=== PATIENT | male | born 1995 | race Caucasian/White ===

== ENCOUNTER 2019-06-22 09:48 | Emergency (ER) | payer OTHER ==
[~2019-06-22] VITALS: Ht 177.8 cm; Wt 77.1 kg
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
[2019-06-22] MEDS ORDERED: SULF-222 PO (11:57)
[2019-06-22 12:00] VITALS: BP 130/80
== END 2019-06-22 12:00 | disposition home or self-care (01) ==
LOC: ER FS 09:51
DX: R22.0 Localized swelling, mass and lump, head (principal)
CPT/HCPCS: 70450

== ENCOUNTER → 2022-07-16 | Outpatient (CLI) | payer SELFPAY ==
[~2022-07-16] MED LIST: SULF-222 PO
--- NOTE | 2022-07-16 11:26 | Diagnostic Imaging Report ---
INDICATION: Follow-up fracture. COMPARISON: None FINDINGS: Multiple radiographic views of the right hand were obtained. There are acute appearing transverse oriented fractures of the distal 4th and 5th metacarpals. There is mild angulation at the fracture sites. There is no evidence of intra-articular extension. Joint spaces are maintained. No unexpected radiopaque foreign bodies are seen. IMPRESSION: 1. Fractures of the 4th and 5th metacarpals as above. Dictated by: Dictated on workstation # [id number]
== END ==
LOC: RAD FS 09:18
PROVIDERS: ATTEND Nurse Practitioner
DX: S62.334D Displaced fracture of neck of fourth metacarpal bone, right hand, subsequent encounter for fracture with routine healing (principal); S62.336D Displaced fracture of neck of fifth metacarpal bone, right hand, subsequent encounter for fracture with routine healing; X58.XXXD Exposure to other specified factors, subsequent encounter
CPT/HCPCS: 73130

== ENCOUNTER 2022-12-27 04:38 | Emergency (ER) | payer SELFPAY ==
[2022-12-27] MEDS ORDERED: ONDANSETRON 4 MG/2 ML (SDV) Z0FRAN IVP STA (04:52)
[2022-12-27] MEDS ORDERED: NS IV 1000 ML 1,000 ML IV STA ×2 (04:52→05:49)
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
[2022-12-27 05:05] LABS: BASOPHILS % (AUTO) 1 % (0-10); EOSINOPHILS % (AUTO) 1 % (0-10); HEMATOCRIT 42 % (40-54); HEMOGLOBIN 14.3 g/dL (13.3-17.7); LYMPHOCYTES # (AUTO) 1.5 10^3/uL (1.0-4.0); LYMPHOCYTES % (AUTO) 24 % (12-44); MEAN CORPUSCULAR HEMOGLOBIN 30 pg (25-34); MEAN CORPUSCULAR HGB CONC 34 g/dL (32-36); MEAN CORPUSCULAR VOLUME 86 fL (80-99); MEAN PLATELET VOLUME 10.6 fL (9.0-12.2); MONOCYTES # (AUTO) 0.5 10^3/uL (0.0-1.0); MONOCYTES % (AUTO) 8 % (0-12); NEUTROPHILS # (AUTO) 4.3 10^3/uL (1.8-7.8); NEUTROPHILS % (AUTO) 67 % (42-75); PLATELET COUNT 230 10^3/uL (130-400); WHITE BLOOD COUNT 6.4 10^3/uL (4.3-11.0)
[2022-12-27] MEDS ORDERED: D5 LR IV SOLUTION 1,000 ML IV STA (05:14)
[2022-12-27 05:21] LABS: ACETAMINOPHEN < 10 UG/ML (10-30); ALANINE AMINOTRANSFERASE 24 U/L (0-55); ALBUMIN 4.5 GM/DL (3.2-4.5); ALKALINE PHOSPHATASE 77 U/L (40-136); BILIRUBIN,TOTAL 0.3 MG/DL (0.1-1.0); BUN/CREATININE RATIO 9; CALCIUM 8.6 MG/DL (8.5-10.1); CARBON DIOXIDE 25 MMOL/L (21-32); CHLORIDE 107 MMOL/L (98-107); CREATININE SERUM 0.98 MG/DL (0.60-1.30); GFR ESTIMATED 108; GLUCOSE 140 MG/DL (70-105); POTASSIUM 3.1 MMOL/L (3.6-5.0); SALICYLATE < 0.3 MG/DL (5.0-20.0); SODIUM 145 MMOL/L (135-145); TOTAL PROTEIN 6.6 GM/DL (6.4-8.2)
[2022-12-27] MEDS ORDERED: DEXTROSE 50% 50 ML (IMS) SYR IV STA (05:49)
[2022-12-27 07:15] LABS: BILIRUBIN,URINE NEGATIVE (NEGATIVE); CLARITY,URINE CLEAR; COLOR,URINE YELLOW; GLUCOSE, URINE (UA) 2+ (NEGATIVE); KETONES,URINE NEGATIVE (NEGATIVE); LEUKOCYTE ESTERASE ,URINE NEGATIVE (NEGATIVE); NITRITE,URINE NEGATIVE (NEGATIVE); PROTEIN,URINE NEGATIVE (NEGATIVE)
[2022-12-27 07:20] LABS: BACTERIA,URINE NEGATIVE /HPF; CALCIUM OXALATE CRYSTALS,UR FEW /LPF; WBC,URINE 0-2 /HPF
[2022-12-27 07:26] LABS: AMPHETAMINE SCREEN, URINE NEGATIVE (NEGATIVE); BARBITURATE SCREEN URINE NEGATIVE (NEGATIVE); BENZODIAZEPINES SCREEN URINE NEGATIVE (NEGATIVE); CANNABINOID SCREEN, URINE NEGATIVE (NEGATIVE); COCAINE SCREEN URINE NEGATIVE (NEGATIVE); METHADONE STAT NEGATIVE (NEGATIVE); OPIATE SCREEN URINE NEGATIVE (NEGATIVE); OXYCODONE STAT NEGATIVE (NEGATIVE); PROPOXYPHENE STAT NEGATIVE (NEGATIVE); TRICYCLIC ANTIDEPRESSANTS SCRE NEGATIVE (NEGATIVE)
[2022-12-27 08:03] VITALS: BP 108/64
== END 2022-12-27 08:03 | disposition home or self-care (01) ==
LOC: EDUNIT# 04:38 → ER FS 04:44
DX: E10.649 Type 1 diabetes mellitus with hypoglycemia without coma (principal); F10.229 Alcohol dependence with intoxication, unspecified; E87.6 Hypokalemia; R03.1 Nonspecific low blood-pressure reading; Y90.6 Blood alcohol level of 120-199 mg/100 ml; Z28.310 Unvaccinated for COVID-19
CPT/HCPCS: 36415; 80053; 80306; 81000; 82947; 85025; 93041; 99284; G0480 ×3; 80320; 80329

== ENCOUNTER 2023-07-21 13:13 | Emergency (ER) | payer SELFPAY ==
[~2023-07-21] VITALS: Ht 177 cm; Wt 170.0 kg
[2023-07-21] MEDS ORDERED: NS IV 1000 ML 1,000 ML IV STA ×2 (13:17→14:02)
[2023-07-21] MEDS ORDERED: ONDANSETRON INJECTION 4 MG/2 ML (SDV) IVP STA (13:17)
[2023-07-21] MEDS ORDERED: inSUlin (REGULAR) HUMAN 1 UNIT/0.01 ML (CHARGE PER UNIT) IV STA (13:29)
[2023-07-21 13:32] LABS: BASOPHILS # (AUTO) 0.1 10^3/uL (0.0-0.1); BASOPHILS % (AUTO) 0 % (0-10); EOSINOPHILS % (AUTO) 0 % (0-10); HEMATOCRIT 48 % (40-54); HEMOGLOBIN 16.3 g/dL (13.3-17.7); LYMPHOCYTES # (AUTO) 0.5 10^3/uL (1.0-4.0); LYMPHOCYTES % (AUTO) 2 % (12-44); MEAN CORPUSCULAR HEMOGLOBIN 30 pg (25-34); MEAN CORPUSCULAR HGB CONC 34 g/dL (32-36); MEAN CORPUSCULAR VOLUME 88 fL (80-99); MONOCYTES # (AUTO) 1.3 10^3/uL (0.0-1.0); MONOCYTES % (AUTO) 6 % (0-12); NEUTROPHILS # (AUTO) 22.3 10^3/uL (1.8-7.8); NEUTROPHILS % (AUTO) 92 % (42-75); PLATELET COUNT 283 10^3/uL (130-400); WHITE BLOOD COUNT 24.2 10^3/uL (4.3-11.0)
[2023-07-21 14:00] LABS: BAND NEUTROPHILS 28 %; LYMPHOCYTES % (MANUAL) 2 %; MONOCYTES % (MANUAL) 7 %; NEUTROPHILS % (MANUAL) 63 %; PLATELET ESTIMATE ADEQUATE; RBC MORPH NORMAL
[2023-07-21 14:01] LABS: BUN/CREATININE RATIO 24; CALCIUM 9.7 MG/DL (8.5-10.1); CHLORIDE 94 MMOL/L (98-107); CREATININE SERUM 1.17 MG/DL (0.60-1.30); GFR ESTIMATED 87; POTASSIUM 4.5 MMOL/L (3.6-5.0); SODIUM 133 MMOL/L (135-145)
[2023-07-21 14:02] LABS: ALANINE AMINOTRANSFERASE 49 U/L (0-55); ALBUMIN 5.1 GM/DL (3.2-4.5); ALKALINE PHOSPHATASE 108 U/L (40-136); BILIRUBIN,TOTAL 1.2 MG/DL (0.1-1.0); CARBON DIOXIDE 13 MMOL/L (21-32); LIPASE 10 U/L (8-78); TOTAL PROTEIN 7.6 GM/DL (6.4-8.2)
[2023-07-21 14:03] LABS: GLUCOSE 479 MG/DL (70-105)
--- NOTE | 2023-07-21 14:18 | ED General ---
General Chief Complaint: Abdominal/GI Problems Stated Complaint: VOMITING; DIARRHEA Nursing Triage Note: Patient has presented to ER with cc of vomiting and diarrhea since 0400 this morning. Source of Information: Patient, Family History of Present Illness Date Seen by Provider: Jul 21, 2023 Time Seen by Provider: 13:17 Initial Comments 28-year-old male presenting with family to the emergency department due to complaints of having nausea, vomiting, diarrhea since 4 AM. There have been family members with similar GI symptoms that have lasted 24 hours or less. Patient is diabetic and has not been able to keep anything down. He does have an insulin pump however it appears to be empty as the last change the cartridge several days ago. He had a blood sugar of 439 by our Accu-Chek on arrival. He has subjectively felt hot at times and chilled at times. He denies any pain or burning with urination. He has not been able to keep anything down with his GI symptoms today. Since this have been going on since 4 AM they finally brought him to the emergency department. They report that in general his sugars usually run between [id number]. Timing/Duration: 12 Hours Severity: Severe Modifying Factors: worse with Eating Associated Systoms: No Chest Pain, No Cough, No Diaphoresis; Fever/Chills (Subjective); No Headaches; Loss of Appetite, Malaise, Nausea/Vomiting; No Rash, No Seizure, No Shortness of Air, No Syncope; Weakness Allergies and Home Medications Allergies Coded Allergies: No Known Drug Allergies (Unverified , 06/22/19) Patient Home Medication List Home Medication List Reviewed: Yes Sulfamethoxazole/Trimethoprim (Sulfamethoxazole-Tmp Ds Tablet) 1 Each Tablet, 1 EACH PO BID Prescribed by: CATERINA RHODES on 06/22/19 1717 Review of Systems Review of Systems Constitutional: see HPI EENTM: no symptoms reported Respiratory: no symptoms reported Cardiovascular: palpitations Gastrointestinal: diarrhea, nausea, vomiting Genitourinary: No dysuria Musculoskeletal: no symptoms reported Skin: No rash Psychiatric/Neurological: No Symptoms Reported Past Yllxjyg-Kgyoyw-Vcrtac Hx Patient Social History Tobacco Use?: No Use of E-Cig and/or Vaping dev: Yes Use of E-Cig and/or Vaping Anthony: Current Everyday User Substance use?: No Alcohol Use?: No Immunizations Up To Date Tetanus Booster (TDap): Less than 5yrs Seasonal Allergies Seasonal Allergies: No Past Medical History Surgery/Hospitalization HX: Insulin Dependent Diabetes, Binge Alcohol use Surgeries: Yes Gallbladder Respiratory: No Cardiac: No Neurological: No Genitourinary: No Gastrointestinal: No Musculoskeletal: No Endocrine: Yes (DM Type I, DKA admit hx, acquired hypothyroidism) Diabetes, Insulin dep HEENT: No Cancer: No Psychosocial: No Depression Integumentary: Yes (areas of sores x 4 now scabbing on scalp) Recent Skin Changes Blood Disorders: No Physical Exam Vital Signs Vital Signs - First Documented 07/21/23 13:53 Pulse 121 Resp 18 B/P (MAP) 135/75 (95) Pulse Ox 97 O2 Delivery Room Air Capillary Refill : Height, Weight, BMI Height: 5'10.00" Weight: 170lbs. oz. [id number]; 54.00 BMI Method:Stated General Appearance: Mild Distress (Appears not to feel well. Is mostly keeping his eyes closed when trying to answer questions and family tries to answer for him.) HEENT: PERRL/EOMI; No Moist Mucous Membranes (Dry mucous membranes) Neck: Full Range of Motion, Normal Inspection, Non Tender, Supple Respiratory: Chest Non Tender, Lungs Clear, Normal Breath Sounds, No Accessory Muscle Use, No Respiratory Distress Cardiovascular: Normal Peripheral Pulses, Tachycardia Gastrointestinal: Normal Bowel Sounds, No Pulsatile Mass, Soft; No Distended, No Guarding; Tenderness (Mild diffuse tenderness) Rectal: Deferred Extremity: Normal Capillary Refill, No Pedal Edema Neurologic/Psychiatric: Alert, Oriented x3 Skin: Normal Color, Warm/Dry Focused Exam Lactate Level 07/21/23 13:20: Lactic Acid Level 4.33*H 07/21/23 15:34: Lactic Acid Level Laboratory Tests Test 07/21/23 13:20 07/21/23 15:34 Lactic Acid Level 4.33 MMOL/L (0.50-2.00) *H Progress/Results/Core Measures Suspected Sepsis SIRS Temperature: Pulse: 121 Respiratory Rate: 18 Laboratory Tests 07/21/23 13:20: White Blood Count 24.2H Blood Pressure 135 /75 Mean: 95 07/21/23 13:20: Lactic Acid Level 4.33*H 07/21/23 15:34: Laboratory Tests 07/21/23 13:20: Creatinine 1.17, Platelet Count 283, Total Bilirubin 1.2H 07/21/23 14:57: Creatinine 0.99 Results/Orders Lab Results Laboratory Tests Test 07/21/23 13:20 07/21/23 13:24 07/21/23 13:35 07/21/23 14:46 Range/Units White Blood Count 24.2 H 4.3-11.0 10^3/uL Red Blood Count 5.42 4.30-5.52 10^6/uL Hemoglobin 16.3 13.3-17.7 g/dL Hematocrit 48 40-54 % Mean Corpuscular Volume 88 80-99 fL Mean Corpuscular Hemoglobin 30 25-34 pg Mean Corpuscular Hemoglobin Concent 34 32-36 g/dL Red Cell Distribution Width 12.6 10.0-14.5 % Platelet Count 283 130-400 10^3/uL Mean Platelet Volume 11.0 9.0-12.2 fL Immature Granulocyte % (Auto) 1 % Neutrophils (%) (Auto) 92 H 42-75 % Lymphocytes (%) (Auto) 2 L 12-44 % Monocytes (%) (Auto) 6 0-12 % Eosinophils (%) (Auto) 0 0-10 % Basophils (%) (Auto) 0 0-10 % Neutrophils # (Auto) 22.3 H 1.8-7.8 10^3/uL Lymphocytes # (Auto) 0.5 L 1.0-4.0 10^3/uL Monocytes # (Auto) 1.3 H 0.0-1.0 10^3/uL Eosinophils # (Auto) 0.0 0.0-0.3 10^3/uL Basophils # (Auto) 0.1 0.0-0.1 10^3/uL Immature Granulocyte # (Auto) 0.1 0.0-0.1 10^3/uL Neutrophils % (Manual) 63 % Lymphocytes % (Manual) 2 % Monocytes % (Manual) 7 % Band Neutrophils 28 % Platelet Estimate ADEQUATE Blood Morphology Comment NORMAL Sodium Level 133 L 135-145 MMOL/L Potassium Level 4.5 3.6-5.0 MMOL/L Chloride Level 94 L 98-107 MMOL/L Carbon Dioxide Level 13 L 21-32 MMOL/L Anion Gap 26 H 5-14 MMOL/L Blood Urea Nitrogen 28 H 7-18 MG/DL Creatinine 1.17 0.60-1.30 MG/DL Estimat Glomerular Filtration Rate 87 BUN/Creatinine Ratio 24 Glucose Level 479 *H 70-105 MG/DL Lactic Acid Level 4.33 *H 0.50-2.00 MMOL/L Calcium Level 9.7 8.5-10.1 MG/DL Corrected Calcium 8.5-10.1 MG/DL Total Bilirubin 1.2 H 0.1-1.0 MG/DL Aspartate Amino Transf (AST/SGOT) 33 5-34 U/L Alanine Aminotransferase (ALT/SGPT) 49 0-55 U/L Alkaline Phosphatase 108 40-136 U/L Total Protein 7.6 6.4-8.2 GM/DL Albumin 5.1 H 3.2-4.5 GM/DL Lipase 10 8-78 U/L Beta-Hydroxybutyrate (Chem panel) 6.09 H 0.00-0.27 MMOL/L Serum Alcohol < 10 <10 MG/DL SARS-CoV-2 RNA (RT-PCR) Not Detected Not Detecte Glucometer 431 *H 269 H 70-110 MG/DL Venous Blood pH 7.23 L 7.31-7.41 Venous Blood Partial Pressure CO2 34 L 40-52 MMHG Venous Blood HCO3 58 H 22-28 MMOL/L Test 07/21/23 14:57 07/21/23 15:34 07/21/23 15:51 Range/Units Sodium Level 137 135-145 MMOL/L Potassium Level 4.2 3.6-5.0 MMOL/L Chloride Level 104 98-107 MMOL/L Carbon Dioxide Level 10 L 21-32 MMOL/L Anion Gap 23 H 5-14 MMOL/L Blood Urea Nitrogen 27 H 7-18 MG/DL Creatinine 0.99 0.60-1.30 MG/DL Estimat Glomerular Filtration Rate 106 BUN/Creatinine Ratio 27 Glucose Level 310 H 70-105 MG/DL Calcium Level 9.0 8.5-10.1 MG/DL Glucometer 204 H 70-110 MG/DL My Orders Orders - CATERINA RHODES MD Comprehensive Metabolic Panel (07/21/23 13:17) Lipase (07/21/23 13:17) Ua Culture If Indicated (07/21/23 13:17) Ed Iv/Invasive Line Start (07/21/23 13:17) Cbc And Automated Diff (07/21/23 13:17) Alcohol (07/21/23 13:17) Drug Screen Stat (Urine) (07/21/23 13:17) Beta Hydroxybutyrate (07/21/23 13:17) Covid 19 Inhouse Test (07/21/23 13:17) Ns Iv 1000 Ml (Ns Iv 1000 Ml) (07/21/23 13:17) Ondansetron Injection (Ondansetron Inj (07/21/23 13:17) Insulin (Regular) Per Unit (Insulin (Reg (07/21/23 13:29) Lactic Acid Analyzer (07/21/23 13:30) Venous Blood Gas (07/21/23 13:35) Manual Differential (07/21/23 13:20) Ns Iv 1000 Ml (Ns Iv 1000 Ml) (07/21/23 14:02) Metoclopramide Injection (Metoclopramide (07/21/23 14:31) Diphenhydramine Injection (Diphenhydram (07/21/23 14:31) Accucheck Stat ONCE (07/21/23 14:31) Iv/Invasive Line Insertion .IV INSERT (07/21/23 14:31) Basic Metabolic Panel (07/21/23 14:31) Basic Metabolic Panel (07/21/23 16:31) Hemoglobin A1c (07/21/23 14:31) Nothing By Mouth (07/21/23 Lunch) Vital Signs: Special (Order) Q2HX8 (07/21/23 14:31) Neurological Checks Q1HX8 (07/21/23 14:31) Ns Iv 1000 Ml (Ns Iv 1000 Ml) (07/21/23 14:45) 1/2 Ns Iv Solution 1000 Ml (1/2 Ns Iv So (07/21/23 14:45) D5 1/2 Ns 1,000 Ml Iv (Dextrose 5%/0.45% (07/21/23 14:45) Insulin Regular Drip (Insulin Regular Dr (07/21/23 14:45) Nursing Communication (Order) (07/21/23 14:31) Notify Physician (07/21/23 14:31) Accucheck Q1hr Q1HR (07/21/23 14:31) Potassium Cl 10meq/50ml Ivpb (Kcl 10 Meq (07/21/23 14:45) Follow Hypoglycemia Protocol (07/21/23 14:31) Blood Culture (07/21/23 15:04) Ceftriaxone Iv/Im (Ceftriaxone Iv/Im) (07/21/23 15:20) Vital Signs/I&O 07/21/23 13:53 Pulse 121 Resp 18 B/P (MAP) 135/75 (95) Pulse Ox 97 O2 Delivery Room Air Capillary Refill : Blood Pressure Mean: 95 Progress Note #1: Progress Note Differential diagnosis includes DKA, stomach flu, COVID, gastroenteritis, pancreatitis, alcohol intoxication, electrolyte imbalance. Establish peripheral IV access and send labs for complete blood count, comprehensive metabolic profile, alcohol level, lipase, blood cultures, lactic acid, ABG. Urine for urinalysis and urine drug screen. Accu-Chek showed sugar was 439. Administer regular insulin 10 units IV along with normal saline 1 L IV fluid bolus for hydration. Zofran 4 mg IV for nausea and vomiting. Progress Note #2: Time: 13:53 Progress Note Lab called to advise that the lactic acid was at 4.33. His complete blood count shows white blood cells 24.2 thousand with hemoglobin 16.3 and platelets 283. He had 63% neutrophils and 28% bands. His venous blood gas came back at 7.23 for his pH. 1425 comprehensive metabolic profile shows sodium of 133 and potassium of 4.5. His BUN was elevated to 28 with a creatinine of 1.17. His CO2 was low at 13 w ith an anion gap elevated to 26. Sugar was 479 on the chemistry profile. Lipase was negative at 10. Advised patient that he was showing signs of DKA and we would need to admit him. He was agreeable to admission at [facility]. He requested additional nausea medicine as the Zofran had not taken his nausea and dry heaves away. Ordered 2nd Liter of NS with him having elevated Lactic acid and will order Metoclopramide 10 mg IV along with Diphenhydramine 25 mg IV for his nausea and vomiting. Call placed to the nursing supervisor incising at [facility] and they did not have an ICU bed available at this time. Call placed to [facility] since Dr. Fischer, the hospitalist for [facility], is cost control analyst for [facility] as well. They advised that [facility] that they did have staffing for an insulin drip. [address] Fischer, [facility] hospitalist phone call today. I reviewed patient presentation and findings of DKA. It appears that his insulin pump had run out of insulin and he had not replaced it. He had been having nausea, vomiting, diarrhea since 4 AM and had ill contacts. His COVID swab was negative. He does have an elevated white count and bandemia so we will add on Rocephin 1 g IV. His elevated lactic acid may be more to his DKA. Using order set for DKA who will get 3rd Liter of Normal saline and start insulin drip. Recheck of accucheck prior to starting insulin drip showed he was down to 269 from 439 since he got IV fluids and 10 units of regular insulin. Progress Note #3: Time: 15:51 Progress Note glucose down to 204. Will stop insulin drip for trip to [place] as EMS is here to transport him. Critical Care Note Critical Care Total Time (minutes) 60 minutes Progress I spent at least 60 minutes of critical care time with the patient. Time ex cludes separately billable procedures. Time was spent obtaining history from the patient and family and electronic medical record, ordering test and reviewing results, ordering interventions and reviewing response, discussion with consultants, documentation in the chart. Patient was at risk of metabolic collapse as well as cardiopulmonary collapse due to DKA and possible sepsis. He required my immediate direct intervention and management to stabilize his condition and arrange for transfer to a higher level of care. Departure Impression Primary Impression: Diabetic ketoacidosis Qualified Codes: E10.10 - Type 1 diabetes mellitus with ketoacidosis without coma Additional Impressions: Nausea vomiting and diarrhea Dehydration Disposition: 02 XFER T-[facility] Condition: Critical Transfer Transfer Reason: Diversion (ICU bed not available at [facility]) Time Spoke to Accepting Phy: 14:50 Transfer Progress Notes [id number] Fischer, [facility] hospitalist phone call today. I reviewed patient presentation and findings of DKA. It appears that his insulin pump had run out of insulin and he had not replaced it. He had been having nausea, vomiting, diarrhea since 4 AM and had ill contacts. His COVID swab was negative. He does have an elevated white count and bandemia so we will add on Rocephin 1 g IV. His elevated lactic acid may be more to his DKA. Using order set for DKA who will get 3rd Liter of Normal saline and start insulin drip. Transfer Facility: [facility] Method of Transfer: EMS Departure-Patient Inst. Referrals: SELF,TONY MD (PCP) Primary Care Physician CATERINA RHODES MD Jul 21, 2023 14:18
[2023-07-21] MEDS ORDERED: diphenhydrAMINE INJ 50 MG/ML VIAL IVP STA (14:31)
[2023-07-21] MEDS ORDERED: METOCLOPRAMIDE INJ 10 MG/2 ML IVP STA (14:31)
[2023-07-21] MEDS ORDERED: D5 1/2 NS 1,000 ML IV 1,000 ML IV SCH (14:45)
[2023-07-21] MEDS ORDERED: NS IV 1000 ML 1,000 ML IV SCH (14:45)
[2023-07-21] MEDS ORDERED: POTASSIUM CL 10MEQ/50ML IVPB 50 ML IV SCH (14:45)
[2023-07-21] MEDS ORDERED: 1/2 NS IV SOLUTION 1000 ML 1,000 ML IV SCH (14:45)
[2023-07-21] MEDS ORDERED: cefTRIAXone IV/IM 1,000 MG in NS (IVPB) 50 ML 50 ML IV STA (15:20)
[2023-07-21 16:02] LABS: CREATININE SERUM 0.99 MG/DL (0.60-1.30); POTASSIUM 4.2 MMOL/L (3.6-5.0)
[2023-07-21 16:14] VITALS: BP 141/89
== END 2023-07-21 16:08 | disposition short-term general hospital (02) ==
LOC: EDUNIT# 13:13 → ER FS 13:14
DX: E10.10 Type 1 diabetes mellitus with ketoacidosis without coma (principal); E86.0 Dehydration; F17.200 Nicotine dependence, unspecified, uncomplicated; R79.89 Other specified abnormal findings of blood chemistry; Z20.822 Contact with and (suspected) exposure to COVID-19
CPT/HCPCS: 36415; 80048; 80053; 82010; 82805; 82947; 83036; 83605; 83690; 85007; 85027; 87040; 87636; G0480; 80320